=== PATIENT | female | born 1970 | race African-American/Black ===

== ENCOUNTER 2018-04-18 11:40 | Emergency (ER) | payer MEDICAID ==
[~2018-04-18] VITALS: Ht 149.9 cm; Wt 68.0 kg
[~2018-04-18 11:40] MED LIST: FERR159T3 PO; MEDR10TA PO
[2018-04-18] MEDS ORDERED: MORPHINE SULFATE 4 MG/ML CPJ (NOT FOR IM USE) IV STA (12:18)
[2018-04-18] MEDS ORDERED: ONDANSETRON HCL 4MG/2ML INJ IV STA (12:18)
[2018-04-18 12:28] LABS: CLARITY URINE TURBID (CLEAR); KETONES URINE TRACE (NEGATIVE); LEUKOCYTE ESTERASE URINE 2+ (NEGATIVE); NITRITE URINE NEGATIVE (NEGATIVE); OCCULT BLOOD URINE 3+ (NEGATIVE); PH URINE 5.5 (4.5-8.0); PROTEIN URINE 2+ (NEGATIVE); SPECIFIC GRAVITY URINE 1.023 (1.005-1.030); UROBILINOGEN URINE 0.2 E.U./dL (0.2-1.0)
[2018-04-18 12:35] LABS: COLOR URINE AMBER (YELLOW)
[2018-04-18 13:03] LABS: BASOPHILS % 0.2 % (0.0-2.0); EOSINOPHILS % 1.9 % (0.0-5.0); HEMATOCRIT. 41.2 % (36.0-48.0); HEMOGLOBIN. 13.7 g/dL (12.0-16.0); LYMPHOCYTES % 20.4 % (20.0-50.0); MEAN CORPUSCULAR VOLUME 87.1 fL (81.0-99.0); MEAN PLATELET VOLUME 9.6 fl (7.4-10.4); MONOCYTES % 7.1 % (2.0-8.0); NEUTROPHILS % 70.4 % (40.0-76.0); PLATELET 190 x1000/uL (130-400); RED BLOOD CELL COUNT 4.73 mill/uL (4.2-5.4); RED CELL DISTRIBUTION WIDTH 13.6 % (11.6-14.6)
[2018-04-18 13:09] LABS: CHLORIDE 104 mEq/L (98-107); PROTHROMBIN TIME 10.1 sec (9.1-11.1)
[2018-04-18] MEDS ORDERED: CEPHALEXIN 500MG CAPSULE PO ONE (14:15)
[2018-04-18 15:10] VITALS: BP 155/89
== END 2018-04-18 15:30 | disposition home or self-care (01) ==
LOC: ER 12:44
DX: R10.32 Left lower quadrant pain (principal); N13.30 Unspecified hydronephrosis; R03.0 Elevated blood-pressure reading, without diagnosis of hypertension; I10 Essential (primary) hypertension; F17.200 Nicotine dependence, unspecified, uncomplicated; Z90.710 Acquired absence of both cervix and uterus
CPT/HCPCS: 36415; 74176; 80053; 81003; 83690; 85025; 85610; 96374; 96375; 99285; J2270; J2405

== ENCOUNTER 2019-01-25 09:46 | Emergency (ER) | payer MEDICAID, OTHER ==
[~2019-01-25] VITALS: Ht 162.6 cm; Wt 69.0 kg
[2019-01-25 10:00] VITALS: BP 151/94
[2019-01-25] MEDS ORDERED: ACETAMINOPHEN 500MG TABLET PO ONE (11:00)
== END 2019-01-25 11:30 | disposition left against medical advice (07) ==
LOC: ER 09:46
DX: M25.512 Pain in left shoulder (principal); I10 Essential (primary) hypertension; F17.210 Nicotine dependence, cigarettes, uncomplicated; Z90.710 Acquired absence of both cervix and uterus
CPT/HCPCS: 73030; 99283

== ENCOUNTER 2020-02-15 11:55 | Emergency (ER) | payer OTHER ==
[~2020-02-15] VITALS: Ht 149.9 cm; Wt 70.0 kg
[2020-02-15 11:57] VITALS: BP 141/70
== END 2020-02-15 12:36 | disposition home or self-care (01) ==
LOC: ER 11:55
DX: H60.92 Unspecified otitis externa, left ear (principal); I10 Essential (primary) hypertension; Z90.710 Acquired absence of both cervix and uterus; Z79.899 Other long term (current) drug therapy
CPT/HCPCS: 99283

== ENCOUNTER 2020-11-04 09:41 | Emergency (ER) | payer OTHER ==
[~2020-11-04] VITALS: Ht 149.9 cm; Wt 68.0 kg
[2020-11-04] MEDS ORDERED: NAPR-681 PO (11:24)
[2020-11-04 11:34] VITALS: BP 157/100
== END 2020-11-04 11:35 | disposition home or self-care (01) ==
LOC: ER 10:43
DX: M25.532 Pain in left wrist (principal); R20.2 Paresthesia of skin; I10 Essential (primary) hypertension; D64.9 Anemia, unspecified; X50.0XXA Overexertion from strenuous movement or load, initial encounter; Y93.89 Activity, other specified; Y92.9 Unspecified place or not applicable; Z90.710 Acquired absence of both cervix and uterus
CPT/HCPCS: 29125; 73110; 99283

== ENCOUNTER 2021-06-25 15:05 | Emergency (ER) | payer MEDICAID, OTHER ==
[~2021-06-25] VITALS: Ht 149.9 cm; Wt 65.0 kg
[~2021-06-25 15:05] MED LIST changes: -MEDR10TA PO; +MEDR10TA3 PO; +NAPR-681 PO
[2021-06-25 15:10] VITALS: BP 194/110
[2021-06-25] MEDS ORDERED: FLUT15.844 BOTHNSTRLS (15:31)
[2021-06-25] MEDS ORDERED: MED4 MT (15:32)
== END 2021-06-25 16:15 | disposition home or self-care (01) ==
LOC: ER 15:05
DX: H92.01 Otalgia, right ear (principal); D25.9 Leiomyoma of uterus, unspecified
CPT/HCPCS: 99282

== ENCOUNTER 2021-08-28 09:16 | Emergency (ER) | payer OTHER ==
[~2021-08-28] VITALS: Ht 152.4 cm; Wt 68.0 kg
[~2021-08-28 09:16] MED LIST changes: +FLUT15.844 BOTHNSTRLS; +MED4 MT
[2021-08-28] MEDS ORDERED: DEXAMETHASONE 10 MG/ML VIAL PO ONE (09:30)
[2021-08-28 09:57] VITALS: BP 158/84
== END 2021-08-28 10:28 | disposition home or self-care (01) ==
LOC: ER 09:16
DX: H93.11 Tinnitus, right ear (principal)
CPT/HCPCS: 99281

== ENCOUNTER 2021-11-12 09:17 | Emergency (ER) | payer OTHER ==
[~2021-11-12] VITALS: Ht 152.4 cm; Wt 69.0 kg
[2021-11-12 10:19] LABS: CLARITY URINE CLEAR (CLEAR); COLOR URINE YELLOW (YELLOW); KETONES URINE NEGATIVE (NEGATIVE); LEUKOCYTE ESTERASE URINE NEGATIVE (NEGATIVE); NITRITE URINE NEGATIVE (NEGATIVE); OCCULT BLOOD URINE NEGATIVE (NEGATIVE); PH URINE 5.5 (4.5-8.0); PROTEIN URINE TRACE (NEGATIVE); SPECIFIC GRAVITY URINE 1.024 (1.005-1.030)
[2021-11-12 11:16] LABS: BASOPHILS % 0.5 % (0.0-2.0); EOSINOPHILS % 2.8 % (0.0-5.0); HEMATOCRIT. 43.8 % (36.0-48.0); HEMOGLOBIN. 14.5 g/dL (12.0-16.0); LYMPHOCYTES % 21.7 % (20.0-50.0); MEAN CORPUSCULAR HEMOGLOBIN 29.2 pg (28.0-32.0); MEAN CORPUSCULAR VOLUME 88.1 fL (81.0-99.0); MEAN PLATELET VOLUME 9.6 fl (7.4-10.4); MONOCYTES % 6.6 % (2.0-8.0); NEUTROPHILS % 68.4 % (40.0-76.0); PLATELET 213 x1000/uL (130-400); RED BLOOD CELL COUNT 4.97 mill/uL (4.2-5.4); RED CELL DISTRIBUTION WIDTH 13.9 % (11.6-14.6)
[2021-11-12 11:22] LABS: *AMPHETAMINES SCREEN URINE NEGATIVE (NEGATIVE); *BARBITURATES SCREEN URINE NEGATIVE (NEGATIVE); *BENZODIAZEPINES SCREEN URINE NEGATIVE (NEGATIVE); *COCAINE SCREEN URINE PRESUMTIVE POSITIVE (NEGATIVE); CANNABINOID URINE SCREEN PRESUMTIVE POSITIVE (NEGATIVE); METHADONE URINE SCREEN NEGATIVE (NEGATIVE); OPIATES URINE SCREEN NEGATIVE (NEGATIVE); PHENCYCLIDINE URINE SCREEN NEGATIVE (NEGATIVE)
[2021-11-12 11:22] LABS: CHLORIDE 106 mEq/L (98-107)
[2021-11-12 11:41] LABS: ETHANOL BLOOD < 10 mg/dL
[2021-11-12] MEDS ORDERED: ASPIRIN 325MG EC TABLET PO ONE (12:15)
[2021-11-12] MEDS ORDERED: LABETALOL 5MG/ML SYR 20 MG/4 ML SYRINGE IV ONE (12:30)
[2021-11-12 17:45] VITALS: BP 151/102
== END 2021-11-12 17:46 | disposition short-term general hospital (02) ==
LOC: ER 09:17
DX: I63.9 Cerebral infarction, unspecified (principal); U07.1 COVID-19; I10 Essential (primary) hypertension; Z90.710 Acquired absence of both cervix and uterus
CPT/HCPCS: 36415; 70450; 71045; 80053; 80305; 80320; 81003; 84484; 85025; 87426; 96374; 99285; J3490; G0480

== ENCOUNTER 2023-04-23 05:20 | Emergency (ER) | payer OTHER ==
[~2023-04-23] VITALS: Ht 152.4 cm; Wt 71.0 kg
[~2023-04-23 05:20] MED LIST changes: +GUAI-741 MT; +IBUP-2029 MT; +MEDR10TA PO; -MEDR10TA3 PO
[2023-04-23 05:22] VITALS: BP 178/107; PULSE 62; RESP 16; TEMP 98.3
[2023-04-23] MEDS ORDERED: CIPHCO LEFT EAR (06:36)
== END 2023-04-23 06:49 | disposition home or self-care (01) ==
LOC: ER 05:27
DX: H60.91 Unspecified otitis externa, right ear (principal)
CPT/HCPCS: 99281; 99283

== ENCOUNTER 2023-08-26 10:09 | Emergency (ER) | payer MEDICAID, OTHER ==
[~2023-08-26] VITALS: Ht 152.4 cm; Wt 70.0 kg
[~2023-08-26 10:09] MED LIST changes: +CIPHCO LEFT EAR
[2023-08-26 10:16] VITALS: O2SAT 98
[2023-08-26 10:45] LABS: BASOPHILS % 0.6 % (0.0-2.0); DIFFERENTIAL COMMENT 0; EOSINOPHILS % 4.4 % (0.0-5.0); HEMATOCRIT. 44.4 % (36.0-48.0); HEMOGLOBIN. 14.6 g/dL (12.0-16.0); LYMPHOCYTES % 19.4 % (20.0-50.0); MEAN CORPUSCULAR HEMOGLOBIN 28.7 pg (28.0-32.0); MEAN CORPUSCULAR HGB CONC 32.8 g/dL (31.0-37.0); MEAN CORPUSCULAR VOLUME 87.4 fL (81.0-99.0); MEAN PLATELET VOLUME 9.6 fl (7.4-10.4); NEUTROPHILS % 67.6 % (40.0-76.0); PLATELET 219 x1000/uL (130-400); RED BLOOD CELL COUNT 5.08 mill/uL (4.2-5.4); RED CELL DISTRIBUTION WIDTH 13.9 % (11.6-14.6); WHITE BLOOD COUNT 5.9 x1000/uL (4.5-11.0)
[2023-08-26 11:00] LABS: ALANINE AMINOTRANSFERASE 25 IU/L (10-49); ALBUMIN 4.6 g/dL (3.2-4.8); ASPARTATE AMINOTRANSFERASE 19 IU/L (<34); BILIRUBIN TOTAL 0.7 mg/dL (0.1-1.0); CALCIUM 10.4 mg/dL (8.7-10.4); CARBON DIOXIDE 29 mEq/L (21-32); CHLORIDE 106 mEq/L (98-107); CREATININE 0.9 mg/dL (0.6-1.0); GLUCOSE 95 mg/dL (70-105); POTASSIUM 3.8 mEq/L (3.5-5.1); PROTEIN TOTAL 7.8 g/dL (6.0-8.3); SODIUM 141 mEq/L (136-145); UREA NITROGEN BLOOD 12 mg/dL (9-23)
[2023-08-26 11:20] LABS: CLARITY URINE CLEAR (CLEAR); COLOR URINE YELLOW (YELLOW); GLUCOSE URINE NEGATIVE (NEGATIVE); KETONES URINE NEGATIVE (NEGATIVE); LEUKOCYTE ESTERASE URINE NEGATIVE (NEGATIVE); NITRITE URINE NEGATIVE (NEGATIVE); OCCULT BLOOD URINE NEGATIVE (NEGATIVE); PH URINE 5.5 (4.5-8.0); PROTEIN URINE TRACE (NEGATIVE); SPECIFIC GRAVITY URINE 1.027 (1.005-1.030); UROBILINOGEN URINE 0.2 E.U./dL (0.2-1.0)
[2023-08-26 11:43] LABS: BACTERIA URINE 2+; SQUAMOUS EPITHELIAL CELL URINE 3+ /lpf (RARE/1+)
[2023-08-26 11:44] LABS: RBC URINE NONE SEEN /hpf (0-2); WBC URINE 0-2 /hpf (0-2)
[2023-08-26 13:12] LABS: TROPONIN I HIGH SENSITIVITY 4 ng/L (3.0-34)
[2023-08-26] MEDS: TAMSULOSIN HCL 0.4MG SR CAPSULE PO ONE (15:07)
[2023-08-26] MEDS: CALCIUM GLUCONATE 1GM PREMIX 50 ML IV ONE (15:15)
[2023-08-26 15:42] LABS: TROPONIN I HIGH SENSITIVITY 4 ng/L (3.0-34)
[2023-08-26] MEDS ORDERED: TAMS-11 MT (16:22)
[2023-08-26 17:05] VITALS: BP 155/91; PULSE 71; RESP 18; TEMP 98.7
== END 2023-08-26 17:06 | disposition home or self-care (01) ==
LOC: ER 10:09
DX: N13.30 Unspecified hydronephrosis (principal); E78.00 Pure hypercholesterolemia, unspecified; I10 Essential (primary) hypertension; Z90.49 Acquired absence of other specified parts of digestive tract; Z90.710 Acquired absence of both cervix and uterus; Z79.899 Other long term (current) drug therapy; Z86.73 Personal history of transient ischemic attack (TIA), and cerebral infarction without residual deficits
CPT/HCPCS: 80053; 81003; 81025; 83690; 85025; 84484; 36415; 71045; 74176; 93005; 99285; J0610

== ENCOUNTER 2025-01-27 10:47 | Emergency (ER) | payer SELFPAY ==
[~2025-01-27] VITALS: Ht 152.4 cm; Wt 69.0 kg
[~2025-01-27 10:47] MED LIST changes: -MED4 MT; +METH4TAB95 MT; +TAMS-54 MT
[2025-01-27 10:58] VITALS: TEMP 37.1; O2SAT 100
[2025-01-27 11:49] VITALS: BP 149/90; PULSE 75; RESP 18; O2SAT 100
== END 2025-01-27 11:53 | disposition home or self-care (01) ==
LOC: ER 10:47
DX: Z48.00 Encounter for change or removal of nonsurgical wound dressing (principal); E78.00 Pure hypercholesterolemia, unspecified; I10 Essential (primary) hypertension; Z90.710 Acquired absence of both cervix and uterus; Z79.899 Other long term (current) drug therapy
CPT/HCPCS: 99282; Z7610